=== PATIENT | male | born 1965 | race Caucasian/White ===

== ENCOUNTER 2018-08-22 09:00 | Emergency (ER) | payer BC ==
[2018-08-22 09:17] VITALS: BP 119/96
--- NOTE | 2018-08-22 09:56 | UC ---
General HPI - HPI Summary HPI Summary: pt found a tick on his R side this am. his removed the tick. he has been working in the [employer] the past 2 days. they cleaned the site. - History of Current Complaint Chief Complaint: RAKESHkin Stated Complaint: TICK BITE Time Seen by Provider: 08/22/18 09:50 Hx Obtained From: Patient, Family/Cigar Wrapper Tender Automatic Pain Intensity: 0 Associated Signs & Symptoms: Negative: Fever - Allergy/Home Medications Allergies/Adverse Reactions: Allergies Allergy/AdvReac Type Severity Reaction Status Date / Time No Known Allergies Allergy Verified 08/22/18 09:13 PMH/Surg Hx/FS Hx/Imm Hx Previously Healthy: Yes - Surgical History Surgical History: Yes Surgery Procedure, Year, and Place: Left arm repaired artery, after laceration 20 years ago. - Family History Known Family History: Positive: Non-Contributory - Social History Occupation: Employed Full-time Lives: With Family Alcohol Use: Rare Substance Use Type: None Smoking Status (MU): Former Smoker When Did the Patient Quit Smoking/Using Tobacco: 09/2016 - Immunization History Most Recent Tetanus Shot: 01/21/12 Review of Systems All Other Systems Reviewed And Are Negative: No Constitutional: Negative: Fever, Fatigue Skin: Negative: Rash Musculoskeletal: Negative: Arthralgia, Myalgia Neurological: Negative: Weakness, Paresthesia, Numbness Physical Exam Triage Information Reviewed: Yes Appearance: Well-Appearing Vital Signs: Initial Vital Signs Temp 97.7 F 08/22/18 09:13 Pulse 75 08/22/18 09:13 Resp 16 08/22/18 09:13 BP 119/96 08/22/18 09:13 Pulse Ox 99 08/22/18 09:13 Vital Signs Reviewed: Yes Eyes: Positive: Conjunctiva Clear Respiratory: Positive: No respiratory distress Musculoskeletal: Positive: ROM Intact Neurological: Positive: Alert Psychological: Positive: Normal Response To Family, Age Appropriate Behavior Skin Exam: Normal, Other - Red spot on R side of trunk where the tick was removed c/w insect bite. No bullseye. Course/Dx - Differential Dx - Multi-Symptom Differential Diagnoses: Other - no concern for lyme disease - Diagnoses Provider Diagnosis: Tick bite Discharge - Sign-Out/Discharge Documenting (check all that apply): Patient Departure All imaging exams completed and their final reports reviewed: No Studies - Discharge Plan Condition: Stable Disposition: HOME Prescriptions: DOXYcycline CAP(*) [DOXYcycline 100MG CAP(*)] 200 mg PO ONCE #2 cap Patient Education Materials: Tick Bite (ED) Referrals: Elliot Lowery MD [Medical Doctor] - If Needed - Billing Disposition and Condition Condition: STABLE Disposition: Home
== END 2018-08-22 10:07 | disposition home or self-care (01) ==
LOC: UCCORT 09:00
DX: T63.481A Toxic effect of venom of other arthropod, accidental (unintentional), initial encounter (principal); Y92.821 Forest as the place of occurrence of the external cause; Z87.891 Personal history of nicotine dependence
CPT/HCPCS: 99202; G0463